=== PATIENT | female | born 1975 | race American Indian/Alaskan Native ===

== ENCOUNTER 2019-03-12 15:15 | Emergency (ER) | payer OTHER ==
--- NOTE | 2019-03-12 15:53 | Event Note ---
ED Screening Note Date of service: 03/12/19 Time: 15:48 ED Screening Note: This is a 43 y.o. F. that presents to the ER with left knee pain. 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 Reports pain is worse with weight bearing causing her to drag left leg. Denies injury. PMH morbidly obese This initial assessment/diagnostic orders/clinical plan/treatment(s) is/are subject to change based on patients health status, clinical progression and re- assessment by fellow clinical providers in the ED. Further treatment and workup at subsequent clinical providers discretion. Patient/guardian urged not to elope from the ED as their condition may be serious if not clinically assessed and managed. Initial orders include: XR left knee.
--- NOTE | 2019-03-12 16:27 | XRay Report ---
Left knee-3 views INDICATION: anterior patella pain. COMPARISON: None. IMPRESSION: No acute osseous or soft tissue abnormality. Moderate tricompartmental DJD with small joint effusion. Signer Name: Tae Marion MD Signed: 03/12/2019 4:22 PM Workstation Name: [id number]
--- NOTE | 2019-03-12 19:33 | Emergency Department Report ---
ED Lower Extremity HPI - General Chief Complaint: Extremity Injury, Lower Stated Complaint: LT LEG PAIN Time Seen by Provider: 03/12/19 15:48 Source: patient Mode of arrival: Ambulatory Limitations: No Limitations - History of Present Illness Initial Comments: This is a 43 y.o. F. that presents to the ER with left knee pain. 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 Reports pain is worse with weight bearing causing her to drag left leg. Denies injury. PM morbidly obese Complaint: knee injury (left) Onset/Timin -: week(s) Injury: Knee: Left Type of Injury: unknown Place: home Severity: severe Severity scale (0 -10): 10 Improves With: nothing Worsens With: weight bearing, movement Context: walking Associated Symptoms: snap/pop sensation, swelling, ambulatory. denies: numbness, tingling Treatments Prior to Arrival: NSAIDS - Related Data Previous Rx's Medication Instructions Recorded Last Taken Type Ibuprofen [Motrin 800 MG tab] 800 mg PO Q8HR PRN #30 tablet 03/12/19 Unknown Rx Allergies Allergy/AdvReac Type Severity Reaction Status Date / Time No Known Allergies Allergy Unverified 03/12/19 15:40 ED Review of Systems ROS: Stated complaint: LT LEG PAIN Other details as noted in HPI Constitutional: denies: chills, fever Respiratory: denies: cough, shortness of breath, wheezing Cardiovascular: denies: chest pain, palpitations Gastrointestinal: denies: abdominal pain, nausea, diarrhea Musculoskeletal: arthralgia (right knee pain). denies: back pain, joint swelling Skin: denies: rash, lesions Neurological: denies: headache, weakness, paresthesias Psychiatric: denies: anxiety, depression ED Past Medical Hx - Past Medical History Previous Medical History?: Yes Additional medical history: morbid obes - Surgical History Past Surgical History?: No - Social History Smoking Status: Never Smoker Substance Use Type: None - Medications Home Medications: Home Medications Medication Instructions Recorded Confirmed Last Taken Type Ibuprofen [Motrin 800 MG tab] 800 mg PO Q8HR PRN #30 tablet 03/12/19 Unknown Rx ED Physical Exam - General Limitations: No Limitations General appearance: alert, in no apparent distress, obese (morbidly) - Respiratory Respiratory exam: Present: normal lung sounds bilaterally. Absent: respiratory distress - Cardiovascular Cardiovascular Exam: Present: regular rate, normal rhythm. Absent: systolic murmur, diastolic murmur, rubs, gallop - GI/Abdominal GI/Abdominal exam: Present: soft, normal bowel sounds - Expanded Lower Extremity Exam Left Knee exam: Present: tenderness (tenderness over anterior patellar), crepidus, pain w/ pronation/supination, full knee extension. Absent: full ROM (Limited range of motion secondary pain), swelling, abrasion, laceration, ecchymosis, deformity, erythema Lower Leg exam: Present: normal inspection, full ROM Ankle exam: Present: normal inspection, full ROM Foot/Toe exam: Present: normal inspection, full ROM Neuro vascular tendon exam: Present: no vascular compromise Gait: Positive: observed and limited by pain - Neurological Exam Neurological exam: Present: alert, oriented X3, normal gait - Psychiatric Psychiatric exam: Present: normal affect, normal mood - Skin Skin exam: Present: warm, dry, intact, normal color. Absent: rash ED Course Vital Signs 03/12/19 15:40 Temperature 99.6 F Pulse Rate 72 Respiratory 20 Rate Blood Pressure 177/82 O2 Sat by Pulse 100 Oximetry ED Lower Extremity MDM - Radiology Data Radiology results: report reviewed Left knee-3 views INDICATION: anterior patella pain. COMPARISON: None. IMPRESSION: No acute osseous or soft tissue abnormality. Moderate tricompartmental DJD with small joint effusion. - Medical Decision Making Patient was examined by me. Vitals are normal and patient is in no acute dist ress. Obtained a x-ray of left knee. X-rays dictated by radiologist and report reviewed by myself. No acute osseous or soft tissue abnormality. Moderate tricompartmental DJD with small joint effusion. Patient informed of results. Patient will be treated with for arthritis with NSAIDs. She was given instructions on rice therapy. Referral to orthopedics and PCP for follow-up. Plan discussed with patient to discharge home and treat outpatient. She agrees with ER plan. Patient discharged home in stable condition. Follow up with PCP in 2-3 days. Critical care attestation.: If time is entered above; I have spent that time in minutes in the direct care of this critically ill patient, excluding procedure time. ED Disposition Clinical Impression: Right anterior knee pain, Effusion of right knee, Arthritis Degenerative joint disease of knee, right Qualifiers: Osteoarthritis type: primary Qualified Code(s): M17.11 - Unilateral primary osteoarthritis, right knee Disposition: TO HOME OR SELFCARE Is pt being admited?: No Does the pt Need Aspirin: No Condition: Stable Instructions: Knee Effusion (ED), Osteoarthritis (ED), Arthralgia (ED), RICE Therapy (ED) Additional Instructions: Rest Use ice or heat on affected area for 20 minutes and off for 2 hours. Take pain medication as needed for pain. Follow up with Primary Care Provider in 2-3 days. Prescriptions: Ibuprofen [Motrin 800 MG tab] 800 mg PO Q8HR PRN #30 tablet PRN Reason: Pain , Severe (7-10) [facility] - 3-5 Days [facility] [Outside] - 3-[address] [facility] [Outside] - 3-5 Days JORDAN LOUIS MD [Staff Physician] - 3-5 Days Forms: Work/School Release Form(ED) Time of Disposition: 19:36
[2019-03-12] MEDS ORDERED: CATAPRES PO ONE (20:15)
[2019-03-12 20:29] VITALS: BP 210/117
== END 2019-03-12 20:40 | disposition home or self-care (01) ==
LOC: ED 15:15
DX: M17.11 Unilateral primary osteoarthritis, right knee (principal); E66.01 Morbid (severe) obesity due to excess calories; Z68.43 Body mass index [BMI] 50.0-59.9, adult
CPT/HCPCS: 99283